=== PATIENT | female | born 1945 | race Caucasian/White ===

== ENCOUNTER → 2023-11-14 13:11 | Outpatient (REF) | payer OTHER, SELFPAY | LOC: WDC 13:11 | PROVIDERS: ATTENDING PHYSICIAN Internal Medicine | DX: Z12.31 Encounter for screening mammogram for malignant neoplasm of breast (principal); Z13.820 Encounter for screening for osteoporosis | CPT/HCPCS: 77063; 77067; 77080 ==

== ENCOUNTER 2024-07-07 11:14 | Inpatient (IN) | payer OTHER, SELFPAY ==
[2024-07-03 10:12] VITALS: BMI 25.1
[2024-07-03 10:33] LABS: Hematocrit 37.9 % (37.0-47.0); Hemoglobin 12.8 g/dL (12.0-16.0); Mean Corp Hgb Conc. 33.8 g/dL (33.0-37.0); Mean Corpuscular Volume 88.8 fL (81.0-99.0); Mean Platelet Volume 11.8 fL (7.4-10.4); Platelet Count 247 10^3/uL (130-400); Red Blood Cell Count 4.27 10^6/uL (4.20-5.40); White Blood Cell Count 8.1 10^3/uL (4.8-10.8)
[2024-07-03 11:09] LABS: ALT (SGPT) 19 U/L (0-35); AST (SGOT) 21 U/L (14-36); Albumin 4.3 g/dl (3.5-5.0); Alkaline Phosphatase 160 U/L (38-126); Blood Urea Nitrogen 22 mg/dl (7-17); Calcium 10.1 mg/dl (8.4-10.2); Carbon Dioxide 28 mmol/L (22-30); Chloride 95 mmol/L (98-107); Estimated Creatinine Clearance 42 ml/min; Glucose 112 mg/dl (70-99); Sodium 136 mmol/L (135-145); Total Bilirubin 0.4 mg/dl (0.2-1.3); Total Protein 6.9 g/dl (6.3-8.2); eGFR 57.66
[2024-07-03 12:01] LABS: Glycohemoglobin (HgbA1c) 5.5 % (4.0-5.6)
[2024-07-03 12:06] VITALS: BMI 25.1
[2024-07-07] VITALS (12 sets, daily range): BP systolic 95–153; BP diastolic 46–83; BMI 26.7
[2024-07-07] MEDS: TYLENOL 650 MG PO ×3 (13:34→23:23)
[2024-07-07] MEDS: CELEBREX 200 MG PO (13:35)
[2024-07-07] MEDS: NORMOSOL-R/PLASMALYTE-A 1000 IV ×2 (13:35→22:00)
--- NOTE | 2024-07-07 15:28 | W.PN.UPDATE ---
Update Note
Progress Note Update
Periprosthetic fx of R femur s/p Revision of R IAN w/ Dr Velazquez 07/07/24
- s/p R IAN, 05/2024, by Dr Velazquez
DVT prophylaxis - ASA, b/l venous foot pumps
HTN - + parameters - monitor BP
CKD stage 3B - minimize nephrotoxins
Hypercholesterolemia
Venous varicosities s/p laser tx
Colon polyps
Diverticulosis
Multilevel DDD
Skin CA
Osteopenia
The patient has prophylactic Cefadroxil
[2024-07-07] MEDS: ASPIRIN 325 MG PO (19:48)
[2024-07-07] MEDS: DEMEROL 12.5 MG IV (19:54)
[2024-07-07] MEDS: DILAUDID 2 MG PO (20:18)
--- NOTE | 2024-07-07 21:00 | TRANSFER ---
Report received from UPHOLSTERY CUTTER Judith. Pt arrived from PACU at 2044 s/p revision R IAN, antibacterial surgical drsg CDI, no c/o pain. Pt drowsy but arousable to verbal. VSS. Spouse at bedside. Assessment ongoing.
[2024-07-07] MEDS: PEPCID 20 MG PO (22:00)
[2024-07-07] MEDS: COLACE PO (22:00)
[2024-07-07] MEDS: DECADRON 4 MG PO (22:00)
[2024-07-07] MEDS: SENOKOT 17.2 MG PO (22:00)
[2024-07-07] MEDS: BACTROBAN 2% OINTMENT 1 APPLIC NASAL (22:00)
[2024-07-07] MEDS: ANCEF 5 IV (23:23)
[2024-07-08] VITALS (8 sets, daily range): BP systolic 115–144; BP diastolic 52–68; PULSE 75; O2SAT 100
[2024-07-08] MEDS: DILAUDID 4 MG PO ×4 (00:10→20:51)
[2024-07-08] MEDS: TYLENOL 650 MG PO ×4 (04:10→20:12)
[2024-07-08] MEDS: ANCEF 5 IV (08:25)
[2024-07-08] MEDS: ASPIRIN 325 MG PO (08:25)
[2024-07-08] MEDS: SENOKOT 17.2 MG PO (08:26)
[2024-07-08] MEDS: COLACE 100 MG PO (08:26)
[2024-07-08] MEDS: BACTROBAN 2% OINTMENT 1 APPLIC NASAL ×2 (08:26→20:12)
[2024-07-08] MEDS: DECADRON 4 MG PO ×2 (08:27→20:12)
[2024-07-08] MEDS: VITAMIN D3 (cholecalciferol) 25 MCG PO (08:27)
[2024-07-08] MEDS: ZETIA 10 MG PO (08:28)
[2024-07-08] MEDS: DILAUDID 2 MG PO (10:12)
[2024-07-08] MEDS: ZOFRAN 4 MG IV (10:50)
--- NOTE | 2024-07-08 12:30 | CM ---
Reviewed the chart notes and spoke with the patient at the bedside. The patient resides with her spouse in a one story home with two steps to enter. The patient has a rolling walker, shower chair, cane, and toilet rails. The patient has had [facility]
in the past, but no SNF. The patient anticipates being discharged to home with VN services. CM consult for homecare in place. The patient confirmed her pharmacy of choices is the [facility]. CM continues to be available to
patient/family and is monitoring medical plan for needs at discharge.
Plan: Discharge to home with [facility] services when medically stable. Referral sent via [facility].
[2024-07-08] MEDS: TYLENOL PO (13:07)
[2024-07-08] MEDS: COMPAZINE 5 MG IV (13:18)
--- NOTE | 2024-07-08 13:32 | W.PN.ORTHO ---
Today's Communication / Plan
-
D/c when clinically stable.
Assessment
.
Distal Motor Intact: Yes
Dressing:
Scant areas of old incisional bleeding.
Assessment:
Periprosthetic fx of R femur s/p Revision of R IAN w/ Dr Velazquez 07/07/24
- s/p R IAN, 05/2024, by Dr Velazquez
DVT prophylaxis - ASA, b/l venous foot pumps
PONV - likely related to food on empty stomach this AM - PO Compazine TID w/ IV Zofran prn
- Add daily Protonix
- Keep current pain meds as pt tolerated Dilaudid previously
- Encouraged PO intake
- Continue to monitor
HTN - + parameters - monitor BPs
CKD stage 3B - continue to minimize nephrotoxins
Hypercholesterolemia
Venous varicosities s/p laser tx
Colon polyps
Diverticulosis
Multilevel DDD
Skin CA
Osteopenia
The patient has prophylactic Cefadroxil
Plan
.
Surgery / Date: Revision of R IAN w/ Dr Velazquez 07/07/24
DVT Prophylaxis: Aspirin
Activity:
Out of bed.
PT/OT
Discharge Plan: Home w/ VN
Subjective
.
.:
Patient resting comfortably in bed.
R thigh pain related to surgery - lidoderm, Flexeril HSPRN ordered.
PONV.
Vital Signs and Labs
.
Vital Signs and Labs:
Lab Results
07/03/24 10:07
07/03/24 10:07
Temp Pulse Resp BP Pulse Ox
97.8 F 72 18 133/62 97
07/08/24 11:10 07/08/24 11:10 07/08/24 11:10 07/08/24 11:10 07/08/24 11:10
Non-invasive Hgb result: 11.2
Physical Exam
-
HEENT: No pallor, cyanosis, or jaundice. Throat clear.
NECK: Supple. No JVD.
RESPIRATORY: Lungs clear to auscultation.
CVS: S1, S2 normal. RRR.�
ABDOMEN: Soft, non-tender. No distension.
EXTREMITIES: Strength equal, no calf pain with palpation/dorsiflexion. Calves soft.
FIRST COAT SANDER: AOx3. No focal deficits. plate mill mill hand grossly intact
[2024-07-08] MEDS: LIDOCAINE 4% PATCH 2 PATCH TOPICAL (15:00)
[2024-07-08] MEDS: NSS (PRESERVATIVE FREE) 10 ML IV (15:00)
[2024-07-08] MEDS: PROTONIX IV 40 MG IV (15:00)
[2024-07-08] MEDS: COMPAZINE 5 MG PO (20:12)
[2024-07-08] MEDS: COLACE PO ×2 (20:12→20:33)
[2024-07-08] MEDS: SENOKOT PO ×2 (20:23→20:33)
[2024-07-09] MEDS: TYLENOL PO ×2 (01:00→05:00)
[2024-07-09 07:39] VITALS: BP 132/59
[2024-07-09] MEDS: DILAUDID 2 MG PO (07:51)
[2024-07-09] MEDS: LIDOCAINE 4% PATCH TOPICAL ×2 (07:51→08:00)
[2024-07-09] MEDS: VITAMIN D3 (cholecalciferol) 25 MCG PO (07:52)
[2024-07-09] MEDS: TYLENOL 650 MG PO (07:52)
[2024-07-09] MEDS: DECADRON 4 MG PO (07:52)
[2024-07-09] MEDS: ASPIRIN 325 MG PO (07:52)
[2024-07-09] MEDS: PROTONIX 40 MG PO (07:53)
[2024-07-09] MEDS: ZETIA 10 MG PO (07:53)
[2024-07-09] MEDS: SENOKOT 17.2 MG PO (07:53)
[2024-07-09] MEDS: COLACE 100 MG PO (07:54)
[2024-07-09] MEDS: COMPAZINE 5 MG PO (07:55)
--- NOTE | 2024-07-09 08:47 | W.PN.ORTHO ---
Today's Communication / Plan
-
Await further PT recs. Pt did well w/ OT.
D/c today since clinically stable.
Assessment
.
Distal Motor Intact: Yes
Dressing:
Small areas of old incisional bleeding along incision line.
Assessment:
Periprosthetic fx of R femur s/p Revision of R IAN w/ Dr Velazquez 07/07/24
- s/p R IAN, 05/2024, by Dr Velazquez
DVT prophylaxis - ASA, b/l venous foot pumps
PONV - likely related to multiple meds on empty stomach - PO Compazine TID w/ IV Zofran prn
- Add daily Protonix
- Keep current pain meds as pt tolerated Dilaudid previously
- Encouraged PO intake
- Improved w/ measures above by POD 2
HTN - + parameters - BPs overall stable
CKD stage 3B - continue to minimize nephrotoxins
Hypercholesterolemia
Venous varicosities s/p laser tx
Colon polyps
Diverticulosis
Multilevel DDD
Skin CA
Osteopenia
The patient has prophylactic Cefadroxil
Plan
.
Surgery / Date: Revision of R IAN w/ Dr Velazquez 07/07/24
DVT Prophylaxis: Aspirin
Activity:
Out of bed.
PT/OT
Discharge Plan: Home w/ VN
Subjective
.
.:
Patient resting comfortably in her chair.
R hip pain tolerable w/ current medication regimen.
PONV improved. Feels much better.
Eager for potential d/c today.
Vital Signs and Labs
.
Vital Signs and Labs:
Lab Results
07/03/24 10:07
07/03/24 10:07
Temp Pulse Resp BP Pulse Ox
97.6 F 77 18 132/59 96
07/09/24 07:39 07/09/24 07:39 07/09/24 07:39 07/09/24 07:53 07/09/24 08:00
Non-invasive Hgb result: 11.2
Physical Exam
-
HEENT: No pallor, cyanosis, or jaundice. Throat clear.
NECK: Supple. No JVD.
RESPIRATORY: Lungs clear to auscultation.
CVS: S1, S2 normal. RRR.
ABDOMEN: Soft, non-tender. No distension.
EXTREMITIES: Strength equal, no calf pain with palpation/dorsiflexion. Calves soft.
HEAD FILTER PRESS TENDER: AOx3. No focal deficits. dye lab technician grossly intact
[2024-07-09 09:12] VITALS: BP 121/59; BP 127/60; PULSE 77; O2SAT 98
--- NOTE | 2024-07-09 09:32 | W.DS.TRANS ---
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
-
Discharge Instructions:
Sleep Apnea Risk Intermediate
Discharge Diagnosis/Procedures Periprosthetic fracture of R femur s/p Revision
of R IAN w/ Dr Velazquez 07/07/24
Diet Regular
Activity As tolerated,With Walker
Additional Activity Partial weightbearing of right lower extremity
Driving Restrictions Not until seen by your Dr
Bathing Restrictions OK to Shower
Other Services PT,VN
Wound Care Dressing to be removed 1 week post-surgery.
[place] to be removed at 2 week follow-up
appointment with surgeon's office.
Instructions:
Stand-Alone Forms: Total Hip/Knee Replacement D/C
Changes to Home Medications: Yes
Discharge Medications:
DC Medications w/original date entered in [facility]
ascorbic acid (vitamin C) 500 mg tablet (Vitamin C) 500 mg PO DAILY Supplement 07/03/24
cholecalciferol (vitamin D3) 25 mcg (1,000 unit) tablet (Vitamin D3) 25 mcg PO DAILY Supplement 07/03/24
ezetimibe 10 mg tablet (Zetia) 10 mg PO DAILY High Cholesterol 07/03/24
Saccharomyces boulardii 250 mg capsule (Florastor) 250 mg PO BID #14 caps 07/08/24
acetaminophen 500 mg tablet (Tylenol Extra Strength) 1,000 mg (2 x 500 mg) PO Q6H #60 tabs 07/08/24
aspirin 325 mg tablet 325 mg PO DAILY Blood clot prevention/tx #30 tabs 07/08/24
cefadroxil 500 mg capsule 500 mg PO Q12H #14 caps 07/08/24
dexamethasone 4 mg tablet 4 mg PO BID Anti-inflammatory #5 tabs 07/08/24
docusate sodium 100 mg capsule 100 mg PO BID #30 caps 07/08/24
enalapril maleate 20 mg tablet 20 mg PO DAILY Blood Pressure #0 tabs 07/08/24
hydrochlorothiazide 25 mg tablet 25 mg PO DAILY Fluid Retention/Swelling #0 tabs 07/08/24
hydromorphone 2 mg tablet 2 - 4 mg (1 - 2 x 2 mg) PO Q6H PRN moderate-severe pain #30 tabs 07/08/24
lidocaine 4 % topical patch 2 patch topical DAILY #30 ea 07/08/24
pantoprazole 40 mg tablet,delayed release 40 mg PO DAILY #30 tabs 07/08/24
prochlorperazine maleate 5 mg tablet (Compazine) 5 mg PO TID PRN nausea and vomiting #30 tabs 07/08/24
sennosides 8.6 mg tablet (Senna Laxative) 17.2 mg (2 x 8.6 mg) PO BID #30 tabs 07/08/24
Home Medication Changes
Saccharomyces boulardii 250 mg capsule (Florastor) 250 mg PO BID #14 caps 07/08/24
acetaminophen 500 mg tablet (Tylenol Extra Strength) 1,000 mg (2 x 500 mg) PO Q6H #60 tabs 07/08/24
aspirin 325 mg tablet 325 mg PO DAILY Blood clot prevention/tx #30 tabs 07/08/24
cefadroxil 500 mg capsule 500 mg PO Q12H #14 caps 07/08/24
dexamethasone 4 mg tablet 4 mg PO BID Anti-inflammatory #5 tabs 07/08/24
docusate sodium 100 mg capsule 100 mg PO BID #30 caps 07/08/24
hydromorphone 2 mg tablet 2 - 4 mg (1 - 2 x 2 mg) PO Q6H PRN moderate-severe pain #30 tabs 07/08/24
lidocaine 4 % topical patch 2 patch topical DAILY #30 ea 07/08/24
pantoprazole 40 mg tablet,delayed release 40 mg PO DAILY #30 tabs 07/08/24
prochlorperazine maleate 5 mg tablet (Compazine) 5 mg PO TID PRN nausea and vomiting #30 tabs 07/08/24
sennosides 8.6 mg tablet (Senna Laxative) 17.2 mg (2 x 8.6 mg) PO BID #30 tabs 07/08/24
Pending Results: No
--- NOTE | 2024-07-09 10:17 | CM ---
Reviewed the chart notes and spoke with the patient at the bedside. IMM reviewed. The patient is anticipating being discharged to home today with VN services. CM continues to be available to patient/family and is monitoring medical plan for
needs at discharge.
Plan: Discharge to home with VN services.
[2024-07-09] MEDS: FLUAD (65 yr+) 2024-2025 FORMULA 0.5 ML IM (10:53)
[2024-07-09 11:00] VITALS: BP 121/60
== END 2024-07-09 12:31 | disposition home or self-care (01) | DRG 467 ==
LOC: 2 SOUTH 11:14
PROVIDERS: ADMITTING PHYSICIAN Specialist; FAMILY PHYSICIAN Internal Medicine
PROC: 0SP90JZ Removal of Synthetic Substitute from Right Hip Joint, Open Approach (ICD-10-PCS; 2024-07-07)
PROC: 0SR90JA Replacement of Right Hip Joint with Synthetic Substitute, Uncemented, Open Approach (ICD-10-PCS; 2024-07-07)
PROC: 3E02340 Introduction of Influenza Vaccine into Muscle, Percutaneous Approach (ICD-10-PCS; 2024-07-09)
DX: S72.91XA Unspecified fracture of right femur, initial encounter for closed fracture (principal); M97.01XA Periprosthetic fracture around internal prosthetic right hip joint, initial encounter; I12.9 Hypertensive chronic kidney disease with stage 1 through stage 4 chronic kidney disease, or unspecified chronic kidney disease; N18.32 Chronic kidney disease, stage 3b; E78.00 Pure hypercholesterolemia, unspecified; I83.90 Asymptomatic varicose veins of unspecified lower extremity; M85.80 Other specified disorders of bone density and structure, unspecified site; Z86.0100 Personal history of colon polyps, unspecified; Z87.19 Personal history of other diseases of the digestive system; Z85.828 Personal history of other malignant neoplasm of skin; Z23 Encounter for immunization
CPT/HCPCS: 36415; 73502; 76000; 80053; 83036; 85027; 86850; 86900; 86901; 87070; 90662; 97110; 97116; 97162; 97167; 97535; G0008

== ENCOUNTER 2024-09-23 18:07 | Inpatient (IN) | payer OTHER, SELFPAY ==
[2024-09-23 12:57] VITALS: BP 170/100
[2024-09-23 13:56] LABS: ALT (SGPT) 17 U/L (0-35); AST (SGOT) 20 U/L (14-36); Albumin 4.2 g/dl (3.5-5.0); Alkaline Phosphatase 85 U/L (38-126); Blood Urea Nitrogen 22 mg/dl (7-17); Calcium 9.1 mg/dl (8.4-10.2); Carbon Dioxide 24 mmol/L (22-30); Chloride 90 mmol/L (98-107); Glucose 137 mg/dl (70-99); Sodium 126 mmol/L (135-145); eGFR > 60.00
[2024-09-23 14:09] LABS: Hematocrit 39.2 % (37.0-47.0); Hemoglobin 13.3 g/dL (12.0-16.0); Mean Corp Hgb Conc. 33.9 g/dL (33.0-37.0); Mean Corpuscular Hgb 28.2 pg (27.0-31.0); Mean Corpuscular Volume 83.2 fL (81.0-99.0); Mean Platelet Volume 11.9 fL (7.4-10.4); Platelet Count 210 10^3/uL (130-400); Red Blood Cell Count 4.71 10^6/uL (4.20-5.40); Red Cell Dist. Width 14.6 % (11.5-14.5); White Blood Cell Count 24.2 10^3/uL (4.8-10.8)
[2024-09-23 14:13] LABS: % Basophils 0.1 % (0-2); % Immature Granulocytes 0.5 % (0-0.5); % Monocytes 3.1 % (1.7-9.3); % Neutrophils 91.3 % (42.2-75.2); Absolute Immature Granulocytes 0.1 10^3/uL (0-0.05); Absolute Lymphocytes 1.2 10^3/uL (1.2-3.4); Absolute Monocytes 0.7 10^3/uL (0.1-0.6); Absolute Neutrophils 22.1 10^3/uL (1.4-6.5); Nucleated Red Blood Cells % 0 %
--- NOTE | 2024-09-23 15:55 | ED.GENMED ---
History of Present Illness
General
Chief Complaint: Urinary Symptoms
Time Seen by Provider: 09/23/24 15:28
History of Present Illness
History of Present Illness:
Patient is a 78-year-old woman with history of hypertension, hyperlipidemia presenting to the emergency department with abdominal pain. Patient states that for the past few days she has been having suprapubic abdominal pain as well as diarrhea. Is
not bloody. She went to urgent care today where they checked a urine sample and they told her to come here for further evaluation given the elevated white count. Per my interpretation of the results that she came with it does appear that her urine
is contaminated. Patient denies any urinary frequency or urgency. No back pain. No nausea or vomiting. No recent travel or antibiotics. She did state that she had cortisone injections in her knee a week ago. She also states that she has been
drinking multiple water bottles a day to keep yourself well-hydrated.
Past History
Past History
ED Past Medical History: HTN
Social History
Tobacco: Non-smoker
Personal:
Living: with family
Phy Exam
Physical Exam
Physical Exam:
GENERAL: in no acute distress
HEENT: normocephalic, extraocular movements intact, moist oral mucosa
NECK: normal inspection
RESPIRATORY: no respiratory distress, clear to auscultation bilaterally
CARDIOVASCULAR: regular rate and rhythm
ABDOMEN/: soft, non-distended, tenderness to palpation in the suprapubic region, no rebound or guarding
EXTREMITIES: non-tender, no edema/swelling
NEUROLOGIC: awake and alert, moves all extremities
SKIN: warm
Course
Orders/Labs/Results
Orders:
Orders
09/23/24 13:19
Complete Blood Count/With Diff Urgent
Comprehensive Metabolic Panel Urgent
09/23/24 15:54
CT Abd/pelvis W Iv Cont Urgent
Comment:
Reason For Exam: suprapubic pain
09/23/24 16:36
Osmolality, Random Urine Urgent
Date Specimen was Collected: 09/23/24
Time Specimen was Collected: 16:35
Urinalysis Reflex To Culture Urgent
Date Specimen was Collected: 09/23/24
Time Specimen was Collected: 12:59
Urine Microscopic Reflex Cult Urgent
Urine Sodium Urgent
Date Specimen was Collected: 09/23/24
Time Specimen was Collected: 16:35
Urine Culture Urgent
DORINA Source: U
Specimen Description:
Date Specimen was Collected: 09/23/24
Time Specimen was Collected: 12:59
09/23/24 17:10
Piperacillin/Tazo 4.5 Gram [Zosyn] 4.5 gram in 100 ml IV NOW
Abnormal Lab Results
09/23/24 09/23/24
13:19 16:36
WBC 24.2 H 10^3/uL
(4.8-10.8)
RDW 14.6 H %
(11.5-14.5)
MPV 11.9 H fL
(7.4-10.4)
Abs Immat Gran (auto) 0.1 H 10^3/uL
(0-0.05)
Absolute Neuts (auto) 22.1 H 10^3/uL
(1.4-6.5)
Absolute Monos (auto) 0.7 H 10^3/uL
(0.1-0.6)
Neutrophils % 91.3 H %
(42.2-75.2)
Lymphocytes % 5.0 L %
(20.5-51.1)
Sodium 126 L mmol/L
(135-145)
Chloride 90 L mmol/L
(98-107)
BUN 22 H mg/dl
(7-17)
Glucose 137 H mg/dl
(70-99)
Ur Occult Blood Reflex 2+ A
(Negative)
Leukocyte Esterase Rfl 2+ A
(Negative)
Urine Osmolality 260 L mOsm/kg
(300-900)
09/23/24 13:19
09/23/24 13:19
Vital Signs
Initial and Last Documented VS:
Initial Vital Signs
Temp Pulse Resp BP Pulse Ox
97.6 F 83 16 170/100 99
09/23/24 12:57 09/23/24 12:57 09/23/24 12:57 09/23/24 12:57 09/23/24 12:57
Last Documented Vital Signs
Temp Pulse Resp BP Pulse Ox
97.6 F 83 16 170/100 99
09/23/24 12:57 09/23/24 12:57 09/23/24 12:57 09/23/24 12:57 09/23/24 12:57
MDM/Problems Addressed
Differential Diagnosis Includes:
Patient is a 78-year-old woman presenting to the emergency department with abdominal pain. Vitals here notable for being afebrile. Exam does show suprapubic tenderness. The diarrhea differential consists of diverticulitis versus enteritis UTI.
Will check blood work urine and CT scan.
*Critical Care Note
Total Time (30-74mins, 75-104mins- exclusive of procedures): Not Applicable
Update Note
Update Note:
Blood work does show leukocytosis. Her sodium was also low at 126. She does appear euvolemic on exam and does state that she has been drinking significant amount of water. However she is also been having diarrhea though she states that it is not
a significant amount. Will add on urine sodium and urine osm. Will hold off on any IV fluids.
CT scan consistent with diverticulitis. Will give Zosyn. Will admit patient for further management.
ED Attending Note
-
Portions of this chart may have been created with voice recognition software.� Occasional wrong word or��sound alike� substitutions may have occurred due to the inherent limitations of voice recognition software.
Discharge Plan
Departure
Patient Disposition: Admit
Date of Disposition: 09/23/24
Time of Disposition: 17:12
Presentation/result/management discussed w/ accepting MD/DO: Hospitalist
Discharge Problem:
Acute diverticulitis
Prescriptions:
No Action
ascorbic acid (vitamin C) [Vitamin C] 500 mg Tablet
500 mg PO DAILY
ezetimibe [Zetia] 10 mg Tablet
10 mg PO DAILY
cholecalciferol (vitamin D3) [Vitamin D3] 25 mcg (1,000 unit) Tablet
25 mcg PO DAILY
aspirin 325 mg Tablet
325 mg PO DAILY Qty: 30 0RF
Rx Instructions:
Over the counter.
Take daily x4 weeks for blood clot prevention
dexamethasone 4 mg Tablet
4 mg PO BID Qty: 5 0RF
Rx Instructions:
Restart night of discharge and continue twice a day until finished.
Take with food.
docusate sodium 100 mg Capsule
100 mg PO BID Qty: 30 0RF
Rx Instructions:
Over the counter.
hydromorphone 2 mg Tablet
2 - 4 mg PO Q6H PRN (Reason: moderate-severe pain) Qty: 30 0RF
Rx Instructions:
1 tab for moderate pain, 2 if severe.
Dx total joint.
pantoprazole 40 mg Tablet,Delayed Release (Dr/Ec)
40 mg PO DAILY Qty: 30 0RF
Rx Instructions:
Take daily while on post-surgical pain meds to reduce GI upset.
sennosides [Senna Laxative] 8.6 mg Tablet
17.2 mg PO BID Qty: 30 0RF
Rx Instructions:
Over the counter.
prochlorperazine maleate [Compazine] 5 mg tablet
5 mg PO TID PRN (Reason: nausea and vomiting) Qty: 30 0RF
acetaminophen [Tylenol Extra Strength] 500 mg tablet
1,000 mg PO Q6H Qty: 60 0RF
Rx Instructions:
Over the counter.
DO NOT exceed >4000 mg daily.
enalapril maleate 20 mg Tablet
20 mg PO DAILY Qty: 0 0RF
Rx Instructions:
HOLD IF systolic blood pressure <130 while on Dilaudid
cefadroxil 500 mg Capsule
500 mg PO Q12H Qty: 14 0RF
Rx Instructions:
Start night of discharge and continue every 12 hours until finished.
hydrochlorothiazide 25 mg Tablet
25 mg PO DAILY Qty: 0 0RF
Rx Instructions:
HOLD IF systolic blood pressure <130 while on Dilaudid
lidocaine 4 % Adhesive Patch,Medicated
2 patch topical DAILY Qty: 30 0RF
Rx Instructions:
Over the counter. 12 hours on, 12 hours off.
Apply to sides of right hip/thigh.
Saccharomyces boulardii [Florastor] 250 mg capsule
250 mg PO BID Qty: 14 0RF
Rx Instructions:
Over the counter. Take while on antibiotic.
If unavailable, choose a different probiotic.
Referrals:
Sherry Ledesma MD [Family Provider] -
Interventions
Interventions:
*Risk Screen - Suicide Last Done: 09/23/24 12:57
*Neglect/Abuse Screening Last Done: 09/23/24 12:57
Discharge Date and Time
Print Language: IRISH
[2024-09-23 16:51] LABS: Urine Albumin Trace (Neg - Trace); Urine Bilirubin Negative (Negative); Urine Character Clear (Clear); Urine Color Straw; Urine Glucose Negative (Negative); Urine Ketone Negative (Negative); Urine Leukocyte 2+ (Negative); Urine Nitrite Negative (Negative); Urine Occult Blood 2+ (Negative); Urine Specific Gravity 1.015 (<1.030); Urine Urobilinogen Negative (Neg - 1+)
[2024-09-23 16:59] LABS: Osmolality Urine 260 mOsm/kg (300-900)
[2024-09-23 17:13] LABS: Urine Squamous Cell 0-2 /LPF (Few)
[2024-09-23 17:14] LABS: Urine Bacteria Few (Negative); Urine Red Blood Cell 0-2 /HPF (0-2)
--- NOTE | 2024-09-23 17:15 | HPS.HSE ---
Family Physician
-
Family Physician: Sherry Ledesma
Chief Complaint
-
abdominal pain
History of Present Illness
Ms. Sommer Medrano is a 78 yo woman with hx HTN, right IAN 05/24 s/p revision 07/07/24, HLD presents to the ER with abdominal pain.
Patient states abdominal pain started Sunday evening. She has had decreased appetite since then but reports drinking water. She had a temp to 100.4 yesterday evening. She had multiple loose stools. No nausea/vomiting. The cramping lower
abdominal pain progressed and she visited the Urgent care. Labs showed elevated WBC and she was sent to the ER.
No chest pain or shortness of breath. No LE swelling. No rash.
Medical History
Past Medical History
Past Medical History: Reports HTN and Hypercholesterolemia
Past Surgical History: Reports Other (right IAN 05/24 s/p revision 07/07/24)
Social History
Tobacco: Non-smoker
Alcohol: None
Family History
Family History: Not pertinent
Allergies / Home Medications
Allergies reflects when Allergies were last updated in [facility].
Home Medications with original date entered in [facility]
Allergy/Medication List:
Allergies
Allergy/AdvReac Type Severity Reaction Status Date / Time
pollen extracts Allergy SEASONAL Verified 09/23/24 12:59
ALLERGY-SINUS
CONGESTION
Home Medications
ascorbic acid (vitamin C) 500 mg tablet (Vitamin C) 500 mg PO DAILY Supplement 07/03/24
cholecalciferol (vitamin D3) 25 mcg (1,000 unit) tablet (Vitamin D3) 25 mcg PO DAILY Supplement 07/03/24
ezetimibe 10 mg tablet (Zetia) 10 mg PO DAILY High Cholesterol 07/03/24
Saccharomyces boulardii 250 mg capsule (Florastor) 250 mg PO BID #14 caps 07/08/24
acetaminophen 500 mg tablet (Tylenol Extra Strength) 1,000 mg (2 x 500 mg) PO Q6H #60 tabs 07/08/24
aspirin 325 mg tablet 325 mg PO DAILY Blood clot prevention/tx #30 tabs 07/08/24
cefadroxil 500 mg capsule 500 mg PO Q12H #14 caps 07/08/24
dexamethasone 4 mg tablet 4 mg PO BID Anti-inflammatory #5 tabs 07/08/24
docusate sodium 100 mg capsule 100 mg PO BID #30 caps 07/08/24
enalapril maleate 20 mg tablet 20 mg PO DAILY Blood Pressure #0 tabs 07/08/24
hydrochlorothiazide 25 mg tablet 25 mg PO DAILY Fluid Retention/Swelling #0 tabs 07/08/24
hydromorphone 2 mg tablet 2 - 4 mg (1 - 2 x 2 mg) PO Q6H PRN moderate-severe pain #30 tabs 07/08/24
lidocaine 4 % topical patch 2 patch topical DAILY #30 ea 07/08/24
pantoprazole 40 mg tablet,delayed release 40 mg PO DAILY #30 tabs 07/08/24
prochlorperazine maleate 5 mg tablet (Compazine) 5 mg PO TID PRN nausea and vomiting #30 tabs 07/08/24
sennosides 8.6 mg tablet (Senna Laxative) 17.2 mg (2 x 8.6 mg) PO BID #30 tabs 07/08/24
awaiting Med Rec to be performed
Review of Systems
-
History Source: Patient
A 12 point ROS was completed and negative except as noted: Yes
Physical Exam
Vital Signs
Vital Signs
Temp Pulse Resp BP Pulse Ox
97.6 F 83 16 170/100 99
09/23/24 12:57 09/23/24 12:57 09/23/24 12:57 09/23/24 12:57 09/23/24 12:57
Physical Exam
General: No Apparent Distress and Conversant
HEENT: PERRLA
Respiratory: Clear; No Wheezes
Cardiac: S1/S2 and Regular Rhythm
GI: Other (tenderness lower abdominal quadrants, no rebound or guarding )
Musculoskeletal: No Edema
Skin: Warm and Dry; No Rash
Neuro: AO x 3
Psych: Calm
Laboratory Results
-
09/23/24 13:19
09/23/24 13:19
Laboratory Results
Total Bilirubin 1.0 mg/dl (0.2-1.3) 09/23/24 13:19
AST 20 U/L (14-36) 09/23/24 13:19
ALT 17 U/L (0-35) 09/23/24 13:19
Alkaline Phosphatase 85 U/L (38-126) 09/23/24 13:19
Data Reviewed
-
Diagnostic Radiology: Report Reviewed by me
Lab Data: Labs Reviewed by me
Impression/Plan
-
Ms. Sommer Medrano is a 78 yo woman with hx HTN, right IAN 05/24 s/p revision 07/07/24, HLD presents to the ER with abdominal pain.
Triage VS: T 97.6, P 83, RR 16, BP 170/100, SpO2 99%
LABS: Na 126, K+ 4.0, Cl 90, BUN 22, Cr 0.9, Glucose 137, liver enzymes WNL, WBC 24.2, Hg 13.3, PLT 210
CT A/P:
IMPRESSION:
Acute diverticulitis of the sigmoid colon without pericolonic abscess or perforation.
Mild hepatic steatosis.
MAR: IV Zosyn
Acute Diverticulitis
-admit to med/surg
-IV Zosyn
-CLD
-pain control
Hyponatremia
-likely multifactorial, possibly some degree hypovolemia given diarrhea; patient also on HCTZ and reports drinking free water. Case discussed with Dr. Ziegler who recommends gentle IVF and repeat sodium in 4 hours. If sodium decreases then may
need to order 3% (overnight team can discuss results with Dr. Ziegler if decreases)
-hold ECONOMIC DEVELOPMENT COORDINATOR HCTZ
Essential HTN
-continue ECONOMIC DEVELOPMENT COORDINATOR Enalapril (patient unclear of dose)
awaiting final med rec to be performed
DVT PPx Lovenox subQ
FULL CODE
[2024-09-23 17:25] LABS: Urine Sodium 5 mmol/L (30-90)
[2024-09-23] MEDS: NSS 1000 IV (17:58)
[2024-09-23] MEDS: ZOSYN 100 IV (17:59)
[2024-09-23 18:03] VITALS: BP 164/73
[2024-09-23 19:00] VITALS: BP 142/56
[2024-09-23 20:15] VITALS: BMI 20.5
[2024-09-23 20:18] VITALS: BP 163/68; BMI 26.2
[2024-09-23] MEDS: LOVENOX 40 MG SC (21:43)
[2024-09-23 22:10] LABS: Sodium 127 mmol/L (135-145)
--- NOTE | 2024-09-23 23:00 | PTCARENOTE ---
Patient admitted from ED, via stretcher. Patient ambulated independently into room. Patient denies any pain. Vitals WNL. Room safety reviewed with patient, Plan of care reviewed with patient and all questions answered. Call eldridge within reach, care
ongoing. Will continue to monitor.
[2024-09-23 23:21] VITALS: BP 138/70
[2024-09-24] MEDS: ZOSYN 50 IV ×3 (00:01→12:41)
[2024-09-24 03:01] LABS: Sodium 130 mmol/L (135-145)
[2024-09-24 07:33] VITALS: BP 125/66
[2024-09-24] MEDS: VASOTEC 20 MG PO (09:31)
[2024-09-24 10:20] LABS: % Basophils 0.1 % (0-2); % Eosinophils 0.2 % (0-6); % Immature Granulocytes 0.3 % (0-0.5); % Lymphocytes 5.7 % (20.5-51.1); % Neutrophils 89.7 % (42.2-75.2); Absolute Immature Granulocytes 0.1 10^3/uL (0-0.05); Absolute Monocytes 0.7 10^3/uL (0.1-0.6); Absolute Neutrophils 15.8 10^3/uL (1.4-6.5); Hematocrit 38.2 % (37.0-47.0); Hemoglobin 12.7 g/dL (12.0-16.0); Mean Corp Hgb Conc. 33.2 g/dL (33.0-37.0); Mean Corpuscular Hgb 28.3 pg (27.0-31.0); Mean Corpuscular Volume 85.1 fL (81.0-99.0); Mean Platelet Volume 11.8 fL (7.4-10.4); Nucleated Red Blood Cells % 0 %; Platelet Count 215 10^3/uL (130-400); Red Blood Cell Count 4.49 10^6/uL (4.20-5.40); Red Cell Dist. Width 14.6 % (11.5-14.5); White Blood Cell Count 17.6 10^3/uL (4.8-10.8)
[2024-09-24 10:37] LABS: Sodium 133 mmol/L (135-145)
[2024-09-24 10:41] LABS: Blood Urea Nitrogen 17 mg/dl (7-17); Calcium 8.9 mg/dl (8.4-10.2); Carbon Dioxide 27 mmol/L (22-30); Chloride 96 mmol/L (98-107); Estimated Creatinine Clearance 42 ml/min; Glucose 92 mg/dl (70-99); Magnesium 2.1 mg/dl (1.6-2.3); Potassium 3.6 mmol/L (3.5-5.1); Sodium 133 mmol/L (135-145); eGFR 57.66
--- NOTE | 2024-09-24 11:01 | W.PN.HOSP.TC ---
Today's Communication/Plan
-
possible DC if tolerates LRD
IV Zosyn - would DC on Augmentin TID x 9 more days to complete a 10 day course
Assessment / Plan
Assessment / Plan
Ms. Sommer Medrano is a 78 yo woman with hx HTN, right IAN 05/24 s/p revision 07/07/24, HLD presents to the ER with abdominal pain.
IMPRESSION:
Acute diverticulitis of the sigmoid colon without pericolonic abscess or perforation.
Mild hepatic steatosis.
MAR: IV Zosyn
Acute Diverticulitis
-admit to med/surg
-WBC improved today. Given it is [place] patient really wants to go home today. We discussed risks and benefits. Will trial LRD and if tolerates OK to DC on Augmentin TID (will receive additional dose IV Zosyn prior to DC)
Hyponatremia
-improved s/p gentle NS overnight
-hold CUSTOMS COMPLIANCE SPECIALIST HCTZ now and at DC
Essential HTN
-continue CUSTOMS COMPLIANCE SPECIALIST Enalapril (patient unclear of dose)
DVT PPx Lovenox subQ
FULL CODE
Anticipated Discharge: Within 24 hours
Subjective/Interval History
-
Date of Service: September 24, 2024
pain better
she is hungry and wants to eat solid food
Objective Data
-
Labs:
Laboratory Results
09/24/24 09/24/24 09/24/24
02:32 10:02 10:02
WBC 17.6 H
Hgb 12.7
Hct 38.2
Plt Count 215
Sodium 130 L 133 L 133 L
Potassium 3.6
Chloride 96 L
Carbon Dioxide 27
BUN 17
Creatinine 1.0
Glucose 92
Calcium 8.9
Vital Signs:
Vital Signs
Temp Pulse Resp BP Pulse Ox
98.4 F 74 16 125/66 99
09/24/24 07:33 09/24/24 07:33 09/24/24 07:33 09/24/24 07:33 09/24/24 07:33
I&O
09/23/24 09/24/24 09/25/24
06:59 06:59 06:59
Intake Total 480 / 480
Balance 480 / 480
Review of Systems
-
History Source: Patient
All other systems: Reviewed and negative
Physical Exam
-
General: No Apparent Distress
HEENT: PERRLA
Respiratory: Clear to Auscultation; Negative Wheezes
Cardiac: Regular Rhythm and S1/S2
GI: Soft, Nondistended and Other (very mildly tender lower quadrants)
Musculoskeletal: No Edema
Skin: Warm and Dry; Negative Rash
Neuro: AO x 3
Psych: Calm
Data Reviewed
-
Diagnostic Radiology: Report Reviewed by me
Labs: Labs Reviewed by me
[2024-09-24] MEDS: NSS IV (11:24)
--- NOTE | 2024-09-24 13:11 | W.DS.TRANS ---
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
-
Discharge Instructions:
Discharge Diagnosis/Procedures Acute Diverticulitis
Additional Diets Full Liquids and then low residue diet
Activity As tolerated
Driving Restrictions As prior to admission
Bathing Restrictions None
Blood Work CBC on Wednesday 09/26
Instructions: Full liquid diet
Low-fiber diet
Stand-Alone Forms:
Changes to Home Medications: Yes
Discharge Medications:
DC Medications w/original date entered in [facility]
ascorbic acid (vitamin C) 500 mg tablet (Vitamin C) 500 mg PO DAILY Supplement 07/03/24
cholecalciferol (vitamin D3) 25 mcg (1,000 unit) tablet (Vitamin D3) 25 mcg PO DAILY Supplement 07/03/24
ezetimibe 10 mg tablet (Zetia) 10 mg PO DAILY High Cholesterol 07/03/24
acetaminophen 500 mg tablet (Tylenol Extra Strength) 1,000 mg (2 x 500 mg) PO Q6H #60 tabs 07/08/24
enalapril maleate 20 mg tablet 20 mg PO DAILY Blood Pressure #0 tabs 07/08/24
amoxicillin 875 mg-potassium clavulanate 125 mg tablet 1 tab PO Q8H #27 tabs 09/24/24
Home Medication Changes
Stop Hydrochlorothiazide as this lowers sodium levels
Your blood pressure will be monitored as outpatient to see if you need replacement with a different anti-HTN medication
You have 9 more days of Augmentin (it is dosed 3x/day for Diverticulitis)
Pending Results: No
[2024-09-24 13:44] VITALS: BP 121/54
--- NOTE | 2024-09-24 13:45 | W.DCSUMMARY ---
Discharge Summary
Discharge Data
Date of Admission: 09/23/24
Date of Discharge: 09/24/24
-
Pending Results: No
Hospital Course
Discharging Physician : Dr. Julissa Boles
Disposition : Home
Primary care physician : Dr. Sherry Ledesma
Principal Discharge diagnosis : Uncomplicated acute diverticulitis
Hospital Course :
Ms. Sommer Medrano is a 78 yo woman with hx HTN, right IAN 05/24 s/p revision 07/07/24, HLD presents to the ER with abdominal pain. Triage vitals significant for hypertension. Labs with Na 126, WBC 24.2. CT with finding of acute
diverticulitis without pericolonic abscess or perforation.
Regarding diverticulitis, patient was treated with IV Zosyn while in-house. Her abdominal pain improved, she had some mild cramping. Her WBC decreased from 24.2 to 17.6. Discussed with patient that ideally I would keep her for another day of IV
antibiotics but she was eager to be discharged on [place]. She tolerated a low residue diet. She is discharged on Augmentin TID (Diverticulitis dosing) with plans for repeat labs in 2 days and given warning signs on when to return to the ER.
She is also told she can go slower on advancing diet and eat full liquids at home for 1-2 days then advance to low fiber - given handouts on both.
Regarding Hyponatremia, Na levels improved with holding HCTZ and gentle IVF. She is told to continue to hold her HCTZ at discharge.
Time spent on discharge was 35 minutes.
Important imaging findings :
CT A/P:
IMPRESSION:
Acute diverticulitis of the sigmoid colon without pericolonic abscess or perforation.
Mild hepatic steatosis.
Procedure findings :
Discharge Plan
-
Patient Disposition: Home (Routine Discharge)
Discharge Diagnosis/Procedures: Acute Diverticulitis
Additional Diets: Full Liquids and then low residue diet
Activity: As tolerated
Driving Restrictions: As prior to admission
Bathing Restrictions: None
Blood Work: CBC on Wednesday 09/26
Activity Restrictions/Additional Instructions:
Please follow a full liquid diet x 1-2 more days then slowly increase to low fiber
Return to the ER if any new fevers/chills or worsening abdominal pain.
Please follow up with your PCP within the next week. Discuss timing of next Colonoscopy if indicated with outpatient physician.
Instructions: Full liquid diet, Low-fiber diet
Referrals:
Sherry Ledesma MD [Family Provider] - in less than 1 week
Additional Discharge Medication Instructions: Stop Hydrochlorothiazide as this lowers sodium levels
Your blood pressure will be monitored as outpatient to see if you need replacement with a different anti-HTN medication
You have 9 more days of Augmentin (it is dosed 3x/day for Diverticulitis)
Prescriptions:
New
amoxicillin-pot clavulanate 875-125 mg tablet
1 tab PO Q8H Qty: 27 0RF
Continued
ascorbic acid (vitamin C) [Vitamin C] 500 mg Tablet
500 mg PO DAILY
ezetimibe [Zetia] 10 mg Tablet
10 mg PO DAILY
cholecalciferol (vitamin D3) [Vitamin D3] 25 mcg (1,000 unit) Tablet
25 mcg PO DAILY
acetaminophen [Tylenol Extra Strength] 500 mg tablet
1,000 mg PO Q6H Qty: 60 0RF
Rx Instructions:
Over the counter.
DO NOT exceed >4000 mg daily.
enalapril maleate 20 mg Tablet
20 mg PO DAILY Qty: 0 0RF
Rx Instructions:
HOLD IF systolic blood pressure <130 while on Dilaudid
Discontinued
hydrochlorothiazide 25 mg Tablet
25 mg PO DAILY Qty: 0 0RF
Rx Instructions:
HOLD IF systolic blood pressure <130 while on Dilaudid
Discharge Orders:
Discharge Patient (As Directed); Ordered 09/24/24
Ordered By: Julissa Boles
Discharge Date and Time
Print Language: DOMINICAN
--- NOTE | 2024-09-24 13:58 | CM ---
Patient was discharge to home by nursing; provided transport
== END 2024-09-24 14:01 | disposition home or self-care (01) | DRG 392 ==
LOC: 3 WEST ACU 18:07
PROVIDERS: Emergency Medicine; ADMITTING PHYSICIAN Student in an Organized Health Care Education/Training Program; EMERGENCY PHYSICIAN Student in an Organized Health Care Education/Training Program; FAMILY PHYSICIAN Internal Medicine
DX: K57.32 Diverticulitis of large intestine without perforation or abscess without bleeding (principal); E87.1 Hypo-osmolality and hyponatremia; I10 Essential (primary) hypertension; E78.00 Pure hypercholesterolemia, unspecified; K76.0 Fatty (change of) liver, not elsewhere classified
CPT/HCPCS: 74177; 80048; 80053; 81003; 81015; 83735; 83935; 84295; 84300; 85025; 87086; 99285; Q9967

== ENCOUNTER 2025-06-15 10:56 | Emergency (ER) | payer OTHER, SELFPAY ==
[2025-06-15 11:12] VITALS: BP 159/73
[2025-06-15 11:23] VITALS: BMI 28.0
--- NOTE | 2025-06-15 12:21 | EDRN ---
Dorothy Borjas NP in [facility]ar w/ pt
[2025-06-15 12:35] VITALS: BP 147/71
--- NOTE | 2025-06-15 12:48 | EDRN ---
Dorothy Borjas NP in room w/ pt.
--- NOTE | 2025-06-15 12:53 | ED.GENMED ---
History of Present Illness
General
Chief Complaint: Musculo-Skeletal Complaint
Source: patient
Exam Limitations: none
Time Seen by Provider: 06/15/25 12:10
Nursing documentation reviewed up to this point in time: agreed with
History of Present Illness
History of Present Illness:
Patient is a 79-year-old female who presents with complaints of right heel pain for the past several days. She denies any injury. She reports pain seems to be worse in the morning and also worse with walking on her heel. She has iced it. She has
been taking Tylenol without relief. She was told not to take ibuprofen for questionable mild renal disease
She denies any swelling to the ankle foot or calf. She denies any redness fever or chills. No prior history of gout. No injury
Past History
Past History
ED Past Medical History: HTN
Social History
Tobacco: Non-smoker
Personal:
Living: with family
Phy Exam
General Physical Exam
General Presentation: no apparent distress
General age: appears stated age
General Skin: warm and dry
General Habitus: normal
General Mental: alert
General Hydration: appears well hydrated
Neurological Exam
Neurological Exam: alert and oriented x3
Musculoskeletal Exam
Musculoskeletal Exam: other (Right lower extremity strong pulses no obvious swelling to foot ankle or calf. Patient is tender over the posterior heel and over the plantar fascia region. No erythema. Nontender to light touch)
Skin Exam
Skin Exam: normal color and warm/dry
Psychiatric Exam
Psychiatric Exam: normal mood/affect
Course
Orders/Labs/Results
Orders:
Orders
06/15/25 11:28
CR Foot - Right Min 3 Views Urgent
Comment:
Reason For Exam: R heel pain, no injury
06/15/25 13:15
Prednisone [Deltasone] 40 mg PO NOW STA
Vital Signs
Initial and Last Documented VS:
Initial Vital Signs
Temp Pulse Resp BP Pulse Ox
97.5 F 69 18 159/73 96
06/15/25 11:12 06/15/25 11:12 06/15/25 11:12 06/15/25 11:12 06/15/25 11:12
Last Documented Vital Signs
Temp Pulse Resp BP Pulse Ox
97.5 F 68 16 147/71 98
06/15/25 11:12 06/15/25 12:35 06/15/25 12:35 06/15/25 12:35 06/15/25 12:57
MDM/Problems Addressed
Differential Diagnosis Includes:
Not limited to arthritis, plantar fasciitis, gout less likely less likely
MDM/Problems Addressed:
Patient is a 79-year-old female who presents with right heel pain worse in the morning worse with bearing weight no obvious injury no obvious swelling to the foot ankle or calf no calf tenderness exam not consistent with DVT. No evidence of
cellulitis or infection on exam no erythema. Patient denies any fevers is afebrile. She has no history of gout nontender to light touch .
she is tender along the plantar fascia possible plantar fasciitis will DC with rest and podiatry follow-up which she is unable to take direct NSAIDs and Tylenol has not been relieving symptoms. Will give a short course of steroids for 4 days to see
if improvement recommended very close outpatient follow-up podiatry. Discussed ice and cushioned shoes until seen and evaluated and rest
*Pulse Oximetry
SaO2: 98
Oxygen Mode of Delivery: Room air
Patient hypoxic: no
*Critical Care Note
Total Time (30-74mins, 75-104mins- exclusive of procedures): Not Applicable
ED Attending Note
-
Portions of this chart may have been created with voice recognition software.� Occasional wrong word or��sound alike� substitutions may have occurred due to the inherent limitations of voice recognition software.
Discharge Plan
Departure
Patient Disposition: Home (Routine Discharge)
Date of Disposition: 06/15/25
Time of Disposition: 13:18
Patient with high blood pressure during this ER visit?: Yes
Condition: Fair
Covid-19: Not Applicable
Discharge Problem:
Heel pain
Instructions: Plantar fasciitis, Exercises for plantar fasciitis, BLOOD PRESSURE
Prescriptions:
New
prednisone 20 mg tablet
40 mg PO DAILY Qty: 6 0RF
No Action
ascorbic acid (vitamin C) [Vitamin C] 500 mg Tablet
500 mg PO DAILY
ezetimibe [Zetia] 10 mg Tablet
10 mg PO DAILY
cholecalciferol (vitamin D3) [Vitamin D3] 25 mcg (1,000 unit) Tablet
25 mcg PO DAILY
acetaminophen [Tylenol Extra Strength] 500 mg tablet
1,000 mg PO Q6H Qty: 60 0RF
Rx Instructions:
Over the counter.
DO NOT exceed >4000 mg daily.
enalapril maleate 20 mg Tablet
20 mg PO DAILY Qty: 0 0RF
Rx Instructions:
HOLD IF systolic blood pressure <130 while on Dilaudid
amoxicillin-pot clavulanate 875-125 mg tablet
1 tab PO Q8H Qty: 27 0RF
Referrals:
Kassi Degroot MD [Family Provider, Family Practice]
Nicole Gupta DPM [Specified Professional Personl, Podiatry]
Activity Restrictions/Additional Instructions:
As discussed you were given a dose of steroids here in the ER and a prescription to take daily for the next 3 days starting tomorrow. Please ice your heel foot for the next 24 to 48 hours 20 minutes at a time several times a day. Keep elevated.
Rest. Please follow-up with podiatry return if any worsening of symptoms, if increased pain swelling redness fever chills
Interventions
Interventions:
*Risk Screen - Suicide Last Done: 06/15/25 11:12
*General Assessment Last Done: 06/15/25 11:24
*Neglect/Abuse Screening Last Done: 06/15/25 11:24
*ED- Fall Risk Assessment Last Done: 06/15/25 11:24
*ED COVID-19 Vaccine History Last Done: 06/15/25 11:24
ED-Musculoskeletal Assessment Last Done: 06/15/25 11:26
Discharge Date and Time
Print Language: NEPALESE
[2025-06-15] MEDS: DELTASONE 40 MG PO (13:34)
== END 2025-06-15 13:40 | disposition home or self-care (01) ==
LOC: EMR 10:56
PROVIDERS: EMERGENCY PHYSICIAN Emergency Medicine; FAMILY PHYSICIAN Family Medicine
DX: M79.671 Pain in right foot (principal); I10 Essential (primary) hypertension
CPT/HCPCS: 99283; 73630